=== PATIENT | female | born 1950 | race Caucasian/White ===

== ENCOUNTER → 2020-10-02 08:02 | Outpatient (CLI) | payer MEDICARE, OTHER, SELFPAY | PROVIDERS: Visit Provider Physician Assistant | DX: N39.0 Urinary tract infection, site not specified (principal); N89.8 Other specified noninflammatory disorders of vagina | CPT/HCPCS: 87077; 87086; 87186; 87210 ==

== ENCOUNTER → 2020-10-03 10:17 | Outpatient (CLI) | payer MEDICARE, OTHER, SELFPAY ==
[2020-10-04 10:44] LABS: Urine N gonorrhoeae NOT DETECTED
[2020-10-04 10:57] LABS: Urine Chlamydia NOT DETECTED
== END ==
PROVIDERS: Referring Provider Physician Assistant; Visit Provider Physician Assistant
DX: N89.8 Other specified noninflammatory disorders of vagina (principal)
CPT/HCPCS: 87491; 87591